=== PATIENT | female | born 1980 | race Two or more races ===

== ENCOUNTER 2024-12-17 10:03 | Outpatient (CLI) | payer OTHER | END 2024-12-17 10:04 | disposition home or self-care (01) | LOC: NUCLEAR 10:03 | PROVIDERS: ATTEND Internal Medicine Sports Medicine | DX: C73 Malignant neoplasm of thyroid gland (principal) ==

== ENCOUNTER 2024-12-21 11:10 | Outpatient (CLI) | payer OTHER | END 2024-12-21 11:11 | disposition home or self-care (01) | LOC: NUCLEAR 11:10 | PROVIDERS: ATTEND Internal Medicine Sports Medicine | DX: C73 Malignant neoplasm of thyroid gland (principal) ==